=== PATIENT | female | born 1950 | race Caucasian/White ===

== ENCOUNTER 2021-04-09 09:05 | Outpatient (CLI) | payer MEDICARE ==
[2021-04-09] MEDS ORDERED: Lidocaine 1% PF 5 ML VIAL ONE (10:01)
[2021-04-09] MEDS ORDERED: Sodium Bicarbonate 2.5 MEQ/5 ML VIAL ONE (10:01)
[2021-04-09 11:20] VITALS: TEMP 98.5
== END 2021-04-09 09:06 | disposition home or self-care (01) ==
LOC: CSHRAD 09:05
PROVIDERS: ATTEND Anesthesiology Pain Medicine
DX: M48.02 Spinal stenosis, cervical region (principal); M47.812 Spondylosis without myelopathy or radiculopathy, cervical region
CPT/HCPCS: 62302; 72126

== ENCOUNTER 2021-06-09 15:01 | Emergency (ER) | payer MEDICARE ==
[2021-06-09] MEDS ORDERED: Ventolin HFA Inhaler 60 PUFF INHALER ONE (16:13)
[2021-06-09] MEDS ORDERED: predniSONE 20 MG TAB ONE (16:27)
[2021-06-09 16:29] LABS: #Monocytes 0.4 10x3/uL (0.0-1.1); #Neutrophils 4.3 10x3/uL (1.5-8.4); %Basophils 0.2 % (0.0-2.0); %Lymphocytes 16.2 % (18.0-47.0); %Monocytes 6.8 % (0.0-10.0); %Neutrophils 76.1 % (40.0-75.0); Hemoglobin 12.5 g/dL (12.0-15.5); Mean Corpuscular Hemoglobin 30.8 pg (27.0-33.0); Mean Corpuscular Volume 93.3 fl (81.6-98.3); Mean Platelet Volume 9.9 fl (7.4-10.4); Platelet Count 171 10x3/uL (150-450); RBC Distribution Width 12.2 % (11.5-14.5); Red Blood Cell (RBC) Count 4.06 10x6/uL (3.90-5.03); White Blood Cell (WBC) Count 5.6 10x3/uL (3.5-10.5)
[2021-06-09 16:47] LABS: ALT (SGPT) 20 U/L (8-55); AST (SGOT) 25 U/L (5-34); Albumin 3.9 g/dL (3.4-4.8); Alkaline Phosphatase 107 U/L (40-110); Anion Gap 18 mmol/L (10-20); BUN (Urea Nitrogen) 17 mg/dL (9.8-20.1); Bilirubin, Total 0.4 mg/dL (0.2-1.2); Calc. Creatinine Clearance 0 mL/min (70-130); Calcium 8.3 mg/dL (7.8-10.44); Carbon Dioxide 23 mmol/L (23-31); Chloride 102 mmol/L (98-107); Globulin 2.3 g/dL (2.4-3.5); Glucose 96 mg/dL (80-115); Potassium 4.5 mmol/L (3.5-5.1); Protein, Total 6.2 g/dL (5.8-8.1); Sodium 138 mmol/L (136-145)
== END 2021-06-09 17:40 | disposition home or self-care (01) ==
LOC: CSHERS 15:01
DX: J20.9 Acute bronchitis, unspecified (principal); I10 Essential (primary) hypertension; E03.9 Hypothyroidism, unspecified
CPT/HCPCS: 71045; 80053; 83880; 84484; 85025; 93005; J7512

== ENCOUNTER 2021-08-28 11:00 | Outpatient (CLI) | payer MEDICARE | END 2021-08-28 11:01 | disposition home or self-care (01) | LOC: CSHMAMMO 11:00 | PROVIDERS: ATTEND Family Medicine | DX: Z12.31 Encounter for screening mammogram for malignant neoplasm of breast (principal); Z91.89 Other specified personal risk factors, not elsewhere classified; Z80.3 Family history of malignant neoplasm of breast | CPT/HCPCS: 77063; 77067 ==

== ENCOUNTER 2023-06-20 14:16 | Outpatient (CLI) | payer MEDICARE | END 2023-06-20 14:17 | disposition home or self-care (01) | LOC: CSHRAD 14:16 | PROVIDERS: ATTEND Surgery | DX: M48.02 Spinal stenosis, cervical region (principal); M54.12 Radiculopathy, cervical region; Z98.890 Other specified postprocedural states | CPT/HCPCS: 72040 ==